=== PATIENT | male | born 1990 | race Caucasian/White ===

== ENCOUNTER 2018-01-31 10:48 | Emergency (ER) | payer OTHER, BC ==
--- NOTE | 2018-01-31 10:54 | EDM.PDOC ---
ED HPI GENERAL MEDICAL PROBLEM - General Chief Complaint: Upper Extremity Injury/Pain Stated Complaint: WORKERS COMP / Time Seen by Provider: 01/31/18 10:54 Source of Information: Reports: Patient, RN, RN Notes Reviewed History Limitations: Reports: No Limitations - History of Present Illness INITIAL COMMENTS - FREE TEXT/NARRATIVE: Pt arrives from work by POV with c/o left hand pain sustained approximately 60 to 90 minutes ago when a hydraulic hose exploded as he was grasping it. He also states he got oil in his eyes, but it seems to be gone now. Denies laceration or break in the skin. Denies any other injury. Onset: Today Duration: Constant Quality: Reports: Ache Severity: Moderate Improves with: Reports: None Worsens with: Reports: Movement Associated Symptoms: Reports: No Other Symptoms - Related Data Allergies Allergy/AdvReac Type Severity Reaction Status Date / Time cephalexin Allergy Rash Verified 01/31/18 11:11 Home Meds: Home Meds . [No Known Home Meds] 09/20/14 [History] Past Medical History - Past Health History Medical/Surgical History: Denies Medical/Surgical History Social & Family History - Family History Family Medical History: Noncontributory - Living Situation & Occupation Occupation: Employed Review of Systems - Review of Systems Review Of Systems: ROS reveals no pertinent complaints other than HPI. ED EXAM, GENERAL - Physical Exam Exam: See Below Exam Limited By: No Limitations General Appearance: Alert, WD/WN, No Apparent Distress Eye Exam: Bilateral Eye: Conjunctival Injection (mild), EOMI, PERRL Nose: Normal Inspection Throat/Mouth: Normal Inspection, Normal Voice, No Airway Compromise Head: Atraumatic, Normocephalic Neck: Normal Inspection Respiratory/Chest: No Respiratory Distress Back Exam: Normal Inspection Extremities: Normal Capillary Refill, Other (left hand with generalized swelling , no visible bruising or discoloration, no increaed warmth; skin is intact.) Neurological: Alert, Oriented, CN II-XII Intact, Normal Cognition, Normal Gait, No Motor/Sensory Deficits Psychiatric: Normal Affect, Normal Mood Skin Exam: Warm, Dry, Intact, Normal Color, No Rash Course - Vital Signs Last Recorded V/S: Last Vital Signs Temp 37.3 C 01/31/18 10:55 Pulse 72 01/31/18 10:55 Resp 17 01/31/18 10:55 BP 161/105 H 01/31/18 10:55 Pulse Ox 100 01/31/18 10:55 - Orders/Labs/Meds Orders: Active Orders 24 hr Category Date Time Status Eye Irrigation [RC] ASDIRECTED Care 01/31/18 10:56 Active Hand Comp Min 3V Lt [CR] Urgent Exams 01/31/18 10:54 Ordered - Radiology Interpretation Free Text/Narrative:: Xray left hand: - Re-Assessments/Exams Free Text/Narrative Re-Assessment/Exam: 01/31/18 11:13 Pt's eyes with irrigated with tap water at eye wash station for 5 minutes due to hydraulic oil exposure. Departure - Departure Time of Disposition: 11:27 Disposition: Home, Self-Care 01 Condition: Good Clinical Impression: Encounter for assessment of work-related causation of injury, Chemical exposure of eye Blast injury of hand Qualifiers: Encounter type: initial encounter Laterality: left Qualified Code(s): S69.82XA - Other specified injuries of left wrist, hand and finger(s), initial encounter - Discharge Information Instructions: Crush Injury of the Hand, [id number], Chemical Conjunctivitis, Adult Forms: ED Department Discharge Additional Instructions: Rest, ice pack, and elevated left hand to reduced pain and swelling. Activity as tolerated. Follow up in clinic for recheck if not improved in 5 days. Return to ER if left hand swelling increases, the hand becomes severely painful , discolored, or cold. - My Orders Last 24 Hours: My Active Orders 01/31/18 10:54 Hand Comp Min 3V Lt [CR] Urgent 01/31/18 10:56 Eye Irrigation [RC] ASDIRECTED - Assessment/Plan Last 24 Hours: My Active Orders 01/31/18 10:54 Hand Comp Min 3V Lt [CR] Urgent 01/31/18 10:56 Eye Irrigation [RC] ASDIRECTED
--- NOTE | 2018-01-31 11:29 | CR ---
CLINICAL HISTORY: 28-year-old male with left hand pain and swelling (injury). INTERPRETATION: No fracture or dislocation left hand or wrist. No foreign bodies. No inflammatory periostitis.
== END 2018-01-31 11:45 | disposition home or self-care (01) ==
LOC: DL.ED 10:48
DX: S69.92XA Unspecified injury of left wrist, hand and finger(s), initial encounter (principal); Z88.8 Allergy status to other drugs, medicaments and biological substances; Z88.1 Allergy status to other antibiotic agents; X58.XXXA Exposure to other specified factors, initial encounter
CPT/HCPCS: 73130-LT; 99283

== ENCOUNTER 2020-11-13 23:53 | Emergency (ER) | payer BC ==
[2020-11-14] MEDS ORDERED: Sodium Chloride 0.9% 1,000 ML IV ONE (00:09)
[2020-11-14] MEDS ORDERED: Ondansetron 4 MG/2 ML SDV IV ONE (00:09)
[2020-11-14] MEDS ORDERED: Ketorolac 30 MG/ML SDV IVPUSH ONE (00:09)
[2020-11-14] MEDS ORDERED: diphenhydrAMINE 50 MG/ML SDV IVPUSH ONE (00:09)
--- NOTE | 2020-11-14 00:14 | EDM.PDOC ---
ED HPI GENERAL MEDICAL PROBLEM - General Chief Complaint: Headache Stated Complaint: MIGRANE Time Seen by Provider: 11/14/20 00:00 Source of Information: Reports: Patient, RN, RN Notes Reviewed History Limitations: Reports: No Limitations - History of Present Illness INITIAL COMMENTS - FREE TEXT/NARRATIVE: Patient is a 30-year-old female who presents to ER with complaint of headache that began around 8:00 PM this evening. Patient states he has had a history of headaches in the past, has had a head CT in the past which was normal. He states he has not had a headache like this for a year or longer. States he does have dancing lights across the eyes, aura. States he has used ibuprofen and Excedrin which has not helped with the pain. Admits to sensitivity to light, nausea. Denies vomiting, diarrhea, fever. Does admit to chills from time to time. States his nose has been running this evening, and states this happens each time he has a headache. Patient denies history of hypertension or taking medications for hypertension. Onset: Today, Sudden Headache Pain Score (Numeric/FACES): 10 - Related Data Allergies Allergy/AdvReac Type Severity Reaction Status Date / Time cephalexin Allergy Rash Verified 11/13/20 23:59 Home Meds: Home Meds . [No Known Home Meds] 09/20/14 [History] Past Medical History - Past Health History Medical/Surgical History: Denies Medical/Surgical History Neurological History: Reports: Migraines - Infectious Disease History Infectious Disease History: Reports: Novel Coronavirus - Past Surgical History HEENT Surgical History: Reports: Tonsillectomy GI Surgical History: Reports: Appendectomy Social & Family History - Family History Family Medical History: No Pertinent Family History - Tobacco Use Tobacco Use Status *Q: Never Tobacco User Second Hand Smoke Exposure: No - Recreational Drug Use Recreational Drug Use: No - Living Situation & Occupation Occupation: Employed ED ROS GENERAL - Review of Systems Review Of Systems: Comprehensive ROS is negative, except as noted in HPI. - Physical Exam Exam: See Below Exam Limited By: No Limitations General Appearance: Alert, WD/WN, Mild Distress Eye Exam: Bilateral Eye: EOMI, Normal Inspection Ears: Normal External Exam, Hearing Grossly Normal Nose: Normal Inspection Throat/Mouth: Normal Inspection, Normal Lips, Normal Teeth, Normal Gums, Normal Oropharynx, Normal Voice, No Airway Compromise Head Exam: Atraumatic, Normocephalic Neck: Normal Inspection, Supple, Non-Tender, Full Range of Motion Respiratory/Chest: No Respiratory Distress, Lungs Clear, Normal Breath Sounds, No Accessory Muscle Use, Chest Non-Tender Cardiovascular: Normal Peripheral Pulses, Regular Rate, Rhythm, No Edema, No Gallop, No JVD, No Murmur, No Rub GI/Abdominal: Normal Bowel Sounds, Soft, Non-Tender (Male) Exam: Deferred Rectal (Males) Exam: Deferred Neuro Exam (Abbreviated): Alert, Oriented, CN II-XII Intact, Normal Cognition, Normal Gait, Normal Reflexes, No Motor/Sensory Deficits Back Exam: Normal Inspection, Full Range of Motion, NT Extremities: Normal Inspection, Normal Range of Motion, Non-Tender, No Pedal Edema, Normal Capillary Refill Psychiatric: Normal Affect, Normal Mood Skin Exam: Warm, Dry, Intact, Normal Color, No Rash Course - Vital Signs Last Recorded V/S: Last Vital Signs Temp 96.9 F 11/13/20 23:56 Pulse 86 11/14/20 00:55 Resp 18 11/13/20 23:56 BP 131/88 11/14/20 00:55 Pulse Ox 97 11/14/20 00:55 - Orders/Labs/Meds Orders: Active Orders 24 hr Category Date Time Status Sodium Chloride 0.9% [Normal Saline] 1,000 ml Med 11/14/20 00:09 Active IV .BOLUS Medication Orders Sodium Chloride (Normal Saline) 1,000 mls @ 999 mls/hr IV .BOLUS ONE Stop: 11/14/20 01:09 Last Admin: 11/14/20 00:18 Dose: 999 mls/hr Documented by: SITA Meds: Medications Generic Name Dose Route Start Last Admin Trade Name Freq PRN Reason Stop Dose Admin Sodium Chloride 1,000 mls @ 999 mls/hr 11/14/20 00:09 11/14/20 00:18 Normal Saline IV 11/14/20 01:09 999 mls/hr .BOLUS ONE Administration Discontinued Medications Generic Name Dose Route Start Last Admin Trade Name Freq PRN Reason Stop Dose Admin Diphenhydramine HCl 50 mg 11/14/20 00:09 11/14/20 00:22 Benadryl IVPUSH 11/14/20 00:10 50 mg ONETIME ONE Administration Ketorolac Tromethamine 30 mg 02/21/21 00:09 11/14/20 00:20 Toradol IVPUSH 11/14/20 00:10 30 mg ONETIME ONE Administration Ondansetron HCl 4 mg 11/14/20 00:09 11/14/20 00:18 Zofran IV 11/14/20 00:10 4 mg ONETIME ONE Administration Departure - Departure Time of Disposition: 00:58 Disposition: Home, Self-Care 01 Condition: Good Clinical Impression: Migraine - Discharge Information *PRESCRIPTION DRUG MONITORING PROGRAM REVIEWED*: No *COPY OF PRESCRIPTION DRUG MONITORING REPORT IN PATIENT JORGE: No Instructions: Migraine Headache, [id number] Forms: ED Department Discharge Additional Instructions: Continue using Tylenol and/or Ibuprofen as directed for pain May use Benadryl for severe headache as directed Drink plenty of water Follow up with your primary care facility if no improvement Return to the ER with any worsening of symptoms Sepsis Event Note (ED) - Evaluation Sepsis Screening Result: No Definite Risk - Focused Exam Vital Signs: Vital Signs Temp Pulse Resp BP Pulse Ox 11/14/20 00:55 86 131/88 97 11/13/20 23:56 96.9 F 78 18 167/108 H 98 - My Orders Last 24 Hours: My Active Orders 11/14/20 00:09 Sodium Chloride 0.9% [Normal Saline] 1,000 ml IV .BOLUS - Assessment/Plan Last 24 Hours: My Active Orders 11/14/20 00:09 Sodium Chloride 0.9% [Normal Saline] 1,000 ml IV .BOLUS
== END 2020-11-14 01:03 | disposition home or self-care (01) ==
LOC: DL.ED 23:53
DX: G43.909 Migraine, unspecified, not intractable, without status migrainosus (principal); Z88.1 Allergy status to other antibiotic agents
CPT/HCPCS: 96374; 96375; 99283; J1200; J1885; J2405; J7030

== ENCOUNTER 2022-10-29 20:58 | Observation (INO) | payer BC ==
[2022-10-29] MEDS ORDERED: Sodium Chloride 0.9% 10 ML Syringe FLUSH PRN (21:09)
[2022-10-29] MEDS ORDERED: Sodium Chloride 0.9% 1,000 ML IV ONE ×2 (21:46→22:41)
[2022-10-29] MEDS ORDERED: Naloxone 2 MG/2 ML Syringe IVPUSH ONE (21:51)
[2022-10-29 22:02] LABS: ANION GAP 14.7 mEq/L (7-13); CHLORIDE,CL 105 mmol/L (98-107); SODIUM,NA 144 mmol/L (136-145)
[2022-10-29 22:10] LABS: ESTIMATED GFR 108 mL/min (>=60)
[2022-10-29 22:16] LABS: PTT,PARTIAL THROMBOPLSTIN TIME 27.6 SEC (22.0-34.0)
[2022-10-29 22:19] LABS: AMPHETAMINES,URINE NEGATIVE (NEGATIVE); BARBITURATES,URINE NEGATIVE (NEGATIVE); BENZODIAZEPINE,URINE NEGATIVE (NEGATIVE); MDMA (ECSTASY), URINE NEGATIVE (NEGATIVE); METHADONE,URINE NEGATIVE (NEGATIVE); METHAMPHETAMINES,URINE NEGATIVE (NEGATIVE); OPIATES,URINE POSITIVE (NEGATIVE); OXYCODONE,URINE NEGATIVE (NEGATIVE); PHENCYCLIDINE,URINE NEGATIVE (NEGATIVE); TCA,URINE NEGATIVE (NEGATIVE)
[2022-10-29] MEDS ORDERED: levETIRAcetam in NaCl (iso-os) 1,500 MG in Premix Bag 1 BAG IV ONE ×2 (22:24)
[2022-10-29] MEDS ORDERED: Ondansetron 4 MG/2 ML SDV IVPUSH PRN (23:18)
[2022-10-29] MEDS ORDERED: LORazepam 2 MG/ML SDV IVPUSH PRN (23:18)
[2022-10-29] MEDS ORDERED: Albuterol/Ipratropium 3.0-0.5 MG/3 ML Neb Soln NEB PRN (23:18)
[2022-10-29] MEDS ORDERED: hydrALAZINE 20 MG/ML SDV IVPUSH PRN (23:23)
[2022-10-29] MEDS ORDERED: Naproxen 250 MG Tab PO PRN (23:24)
[2022-10-29] MEDS ORDERED: Melatonin 3 MG Tab PO PRN (23:25)
[2022-10-29] MEDS ORDERED: Lactated Ringers 1,000 ML IV SCH (23:30)
[2022-10-29] MEDS: Pantoprazole 40 MG Tab.CR PO SCH (23:40)
[2022-10-29] MEDS ORDERED: Dextrose 5%-Lactated Ringers 1,000 ML IV SCH (23:45)
[2022-10-29] MEDS ORDERED: D5 1/2 NS w/ 20 mEq/L KCl 1,000 ML IV SCH (23:45)
[2022-10-30 07:24] LABS: ANION GAP 13.9 mEq/L (7-13)
[2022-10-30] MEDS ORDERED: Enoxaparin 40 MG/0.4 ML Syringe SUBCUT SCH (09:00)
[2022-10-30] MEDS ORDERED: levETIRAcetam 500 MG Tab PO SCH (09:00)
[2022-10-30] MEDS: Pantoprazole 40 MG Tab.CR PO SCH (10:31)
[2022-10-30] MEDS ORDERED: Aspirin 81 MG Tab.Chew PO SCH (10:45)
[2022-10-30] MEDS ORDERED: atorvaSTATin 20 MG Tab PO SCH (10:45)
== END 2022-10-30 18:15 ==
LOC: DL.ED 20:58 → DL.MS 22:55
PROVIDERS: ADMIT Internal Medicine; ATTEND Internal Medicine
DX: R41.82 Altered mental status, unspecified (principal); G43.909 Migraine, unspecified, not intractable, without status migrainosus; M48.02 Spinal stenosis, cervical region; Z79.899 Other long term (current) drug therapy; Z88.1 Allergy status to other antibiotic agents; Z86.16 Personal history of COVID-19; Z98.890 Other specified postprocedural states; Z20.822 Contact with and (suspected) exposure to COVID-19
CPT/HCPCS: 36415; 70450; 70544; 71045; 72141; 73030-LT; 80053; 80305-QW; 80307; 81003; 82140; 82947; 83605; 83735; 83880; 84100; 84145; 84146; 84443; 84484; 85025; 85610; 85730; 86140; 87040; 93005; 93010; 99222; 99239; A9270-GY; J1650; J1953; J2310; J3480; J3490; J7030; U0002